=== PATIENT | female | born 1960 | race Hispanic/Latino ===

== ENCOUNTER → 2024-10-23 | Outpatient (CLI) | payer OTHER | END | disposition home or self-care (01) | LOC: RAH 13:43 | PROVIDERS: ATTEND Internal Medicine | DX: Z12.31 Encounter for screening mammogram for malignant neoplasm of breast (principal) | CPT/HCPCS: 77067 ==

== ENCOUNTER → 2024-11-27 | Outpatient (CLI) | payer OTHER ==
--- NOTE | 2024-11-30 15:28 | HMCIMG ---
BILATERAL BREAST ULTRASOUND: CLINICAL HISTORY: Patient is here for follow-up for right breast lesion upper outer quadrant lesion noted on the mammogram from 10/23/2024. Bilateral: Real-time examination of the both breasts demonstrates heterogeneous echotexture throughout both the breasts. Right breast at 9-10 o'clock there is a hypoechoic lesion measuring 0.4 x 0.5 x 0.3 cm with echogenic center possibly intramammary lymph node. The left breast at 8:00 there is a small cyst measuring 0.2 x 0.2 x 0.3 cm.. IMPRESSION: Right breast at 9-10 o'clock there is a small hypoechoic lesion. Coned-down compression view is pending FINAL ASSESSMENT: ACR: BI-RAD -0. Incomplete: need additional imaging evaluation. Management: Recall for additional imaging and/or comparison with prior examination(s). Likelihood of Cancer: N/A
== END | disposition home or self-care (01) ==
LOC: RAH 11:57
PROVIDERS: ATTEND Internal Medicine
DX: N60.02 Solitary cyst of left breast (principal); N64.9 Disorder of breast, unspecified; R92.8 Other abnormal and inconclusive findings on diagnostic imaging of breast

== ENCOUNTER → 2024-12-16 | Outpatient (CLI) | payer OTHER ==
--- NOTE | 2024-12-16 13:32 | HMCIMG ---
DIGITAL right breast DIAGNOSTIC MAMMOGRAM Technique: The digital mammographic examination of right breast in craniocaudal, mediolateral oblique views along with CAD was obtained. History: This is a 64 years year-old female 4, para3 Ab1 . Patient has no family history of breast cancer. Patient has no complaint Reference:Prior mammogram from 12/16/2024 at 10/23/2024 are available.. Breast composition: Breast composition C: The breasts are heterogeneously dense, which may obscure small masses. Finding: The digital mammographic examination of right breast in craniocaudal and mediolateral oblique view along with CAD demonstrates a nodular density measuring 7 mm there is 2 other small nodules seen. This is correlated with the ultrasound demonstrate a small intramammary lymph node which does not correspond with these lesions.. There is no evidence of any dendritic mass, cluster microcalcification or architectural distortion. The retromammary fat appears to be normal. IMPRESSION: The lesion seen on the mammogram and ultrasound does not correspond in size and location therefore I recommend a 6 month follow up with mammogram and sonogram.. FINAL ASSESSMENT: ACR: BI-RAD -3. Probably Benign: Finding(s) has a high probability of being benign; short term follow up is suggested. Management: Short-interval (6-month) follow-up or continued surveillance mammography. Likelihood of Cancer: 0% but <=2% likelihood of malignancy. NOTE: IF A WORK-UP OF THIS PATIENT LEADS TO A BIOPSY, PLEASE FORWARD A COPY OF THE PATHOLOGY REPORT TO OUR OFFICE REQUIRED BY [employer] JANUARY 06, 1994. A NEGATIVE MAMMOGRAM SHOULD NOT PRECLUDE BIOPSY OF A CLINICALLY PALPABLE SUSPICIOUS MASS, 10% OF BREAST CANCERS ARE MAMMOGRAPHICALLY OCCULT. THIS MAMMOGRAPHY FACILITY IS FULLY ACCREDITED BY THE FOOD AND DRUG ADMINISTRATION (FDA). THANK YOU FOR THIS REFERRAL.
== END | disposition home or self-care (01) ==
LOC: RAH 10:39
PROVIDERS: ATTEND Internal Medicine
DX: R92.331 Mammographic heterogeneous density, right breast (principal); R92.8 Other abnormal and inconclusive findings on diagnostic imaging of breast
CPT/HCPCS: 77065

== ENCOUNTER → 2025-01-28 | Outpatient (CLI) | payer OTHER ==
[~2025-01-28] MED LIST: GADOTERATE MEGLUMINE 10 MMOL/20 ML VIAL IV ONE
--- NOTE | 2025-01-28 16:32 | HMCIMG ---
MR PELVIS WITH AND WITHOUT IV CONTRAST Clinical Details: R93.5 Abnormal findings on diagnostic imaging of other abdominal regions. Technique: Multisequence, multiplanar magnetic resonance images of the pelvis without intravenous contrast. Series acquired include AX T1, AX STIR, AX T2 FS, COR T1, COR STIR, COR T2, SAG T2, SAG T1, SAG STIR, G+ AX T1 FS, G+ SAG T1 FS, and G+ COR T1 FS sequences. Findings: Bowel: Grossly unremarkable. Limited evaluation of the stomach and bowel demonstrates no acute process. Bladder: Unremarkable. No stone identified. Reproductive: The uterus is retroverted and atrophic in appearance. Lymph Nodes: No lymphadenopathy is evident. Bones: A focal haemangioma is present at the S1 vertebral level. No acute fracture or aggressive osseous lesion is seen. Spine: Diffuse disc disease is noted at L3-L4, L4-L5, and L5-S1 levels with associated annular fissures. There is compression of the thecal sac at these levels with bilateral mild neural foraminal stenosis. Additional Findings: An incidental umbilical hernia is identified, with a defect measuring 1.5 cm containing fat. IMPRESSION: 1. No acute pelvic findings. 2. Multilevel lumbar degenerative disc disease with mild neural foraminal stenosis. /[place]
--- NOTE | 2025-01-28 16:34 | HMCIMG ---
MR ABDOMEN WITH AND WITHOUT INTRAVENOUS CONTRAST Clinical History: R93.5 Abnormal findings on diagnostic imaging of other abdominal regions. Technique: Multisequence, multiplanar magnetic resonance images of the abdomen with and without intravenous contrast. Series acquired: 3 - COR SSFSE ARC - TR: 676.8 - TE: 89.3 - ET: 1.0 - Thk: 6.0 4 - COR LAVA ARC - TR: 4.3 - TE: 2.0 - ET: 1.0 - Thk: 4.4 6 - AX SSFSE BH ARC - TR: 571.1 - TE: 89.3 - ET: 1.0 - Thk: 6.0 7 - AX 3D DUALECHO BH - TR: 6.5 - TE: 2.1 - ET: 1.0 - Thk: 4.4 9 - AX T2 FRFSE FATSAT PINA ARC - TR: 12483.0 - TE: 103.6 - ET: 17.0 - Thk: 6.0 10 - AX DWI B=500 BH - TR: 3400.0 - TE: 59.3 - ET: 1.0 - Thk: 6.0 22 - G+ COR LAVA ARC - TR: 4.3 - TE: 2.0 - ET: 1.0 - Thk: 4.4 2100 - AX LAVA ARC DYNAMIC - TR: 4.4 - TE: 1.9 - ET: 1.0 - Thk: 4.4 210 - PH1/AX LAVA ARC DYNAMIC - TR: 4.4 - TE: 1.9 - ET: 1.0 - Thk: 4.4 210 - PH2/AX LAVA ARC DYNAMIC - TR: 4.4 - TE: 1.9 - ET: 1.0 - Thk: 4.4 210 - PH3/AX LAVA ARC DYNAMIC - TR: 4.4 - TE: 1.9 - ET: 1.0 - Thk: 4.4 210 - PH4/AX LAVA ARC DYNAMIC - TR: 4.4 - TE: 1.9 - ET: 1.0 - Thk: 4.4 210 - PH5/AX LAVA ARC DYNAMIC - TR: 4.4 - TE: 1.9 - ET: 1.0 - Thk: 4.4 210 - FT: PH1/AX LAVA ARC DYNAMIC - TR: 4.4 - TE: 1.9 - ET: 1.0 - Thk: 20.0 Contrast: Gadolinium contrast. Comparison: None provided. Findings: Lower Thorax: No pleural effusion. Liver: The liver is enlarged, measuring 16 cm in greatest dimension. There are diffusely scattered subcentimeter T2 STIR hyperintense cystic lesions noted throughout both lobes of the liver. Fatty liver changes are also present. The remainder of the liver parenchyma appears otherwise normal. Gallbladder and Bile Ducts: No gallstones are identified. There is no biliary ductal dilatation. Pancreas: Normal in appearance without ductal dilatation. Spleen: Normal in size and signal characteristics. Adrenals: Normal in appearance. Kidneys: The kidneys are normal in size and shape with no evidence of hydronephrosis or masses. A 2.1 x 1.8 cm multilocular non-enhancing cystic lesion in the right upper pole of the kidney is noted. This lesion is T2/STIR hyperintense and T1 hypointense, features consistent with a Bosniak II renal cyst (benign, no surveillance required). Stomach and Bowel: Limited evaluation demonstrates no acute abnormalities. Incidental colonic diverticulosis is noted without signs of complication. Lymph Nodes: No lymphadenopathy is identified. Vasculature: No abdominal aortic aneurysm detected. Additional Findings: There is an incidental umbilical hernia with a fascial defect measuring 1.3 cm containing fat. The hernia is uncomplicated. IMPRESSION: 1. Hepatomegaly with diffuse subcentimeter cysts and fatty changes. 2. 2.1 x 1.8 cm Bosniak II cyst in the right upper pole kidney. 3. Uncomplicated umbilical hernia with 1.3 cm fascial defect. /[place]
== END | disposition home or self-care (01) ==
LOC: RAH 07:41
PROVIDERS: ATTEND Internal Medicine
DX: K76.0 Fatty (change of) liver, not elsewhere classified (principal); N28.1 Cyst of kidney, acquired; K42.9 Umbilical hernia without obstruction or gangrene; M48.061 Spinal stenosis, lumbar region without neurogenic claudication; M47.816 Spondylosis without myelopathy or radiculopathy, lumbar region; M51.379 Other intervertebral disc degeneration, lumbosacral region without mention of lumbar back pain or lower extremity pain; D18.09 Hemangioma of other sites; N28.89 Other specified disorders of kidney and ureter; R93.5 Abnormal findings on diagnostic imaging of other abdominal regions, including retroperitoneum
CPT/HCPCS: 74183; 72197; A9575